=== PATIENT | female | born 1990 | race Caucasian/White ===

== ENCOUNTER → 2018-09-27 | Outpatient (CLI) | payer OTHER ==
--- NOTE | 2018-09-27 14:36 | WOMENS IMAGING REPORT ---
EXAM DESCRIPTION: RETROPERITONEAL U/S COMPLETED DATE/TIME: 09/27/2018 2:25 pm REASON FOR STUDY: N39.0 URINARY TRACT INFECTION,SITE NOT SPECIFIED N39.0 URINARY TRACT INFECTION, S ITE NOT SPECIFIED COMPARISON: None. TECHNIQUE: Dynamic and static grayscale images acquired of the kidneys and bladder and recorded on P ACS. Additional selected color Doppler and spectral images recorded. LIMITATIONS: The examination is somewhat limited by overlying bowel gas. FINDINGS: RIGHT KIDNEY: The right kidney measures 12.0 x 5.1 x 5.8 cm, normal size. Normal echoge nicity. No solid or suspicious masses. No hydronephrosis. No calcifications. LEFT KIDNEY: The left kidney measures 11.6 x 4.6 x 4.9 cm, normal size. Normal echogenicity. No solid or suspicious masses. No hydronephrosis. No calcifications. BLADDER: No masses. Right ureteral jet is visualized. Prevoid volume 455.0 cc. Postvoid volume 12. 0 cc. OTHER FINDINGS: No other significant finding. IMPRESSION: 1. The examination is somewhat limited by overlying bowel gas. 2. No evidence of hydronephrosis. 3. Bladder volumes as above. TECHNICAL DOCUMENTATION: JOB ID: [id number] [employer]- All Rights Reserved Reading location - IP/workstation name: [email or web address]
== END ==
LOC: RAD 10:46
PROVIDERS: ATTEND Family Medicine
DX: N39.0 Urinary tract infection, site not specified (principal)
CPT/HCPCS: 76770

== ENCOUNTER 2019-08-22 17:36 | Inpatient (IN) | payer OTHER ==
[2019-08-22] MEDS ORDERED: RINGERS SOLUTION,LACTATED 1,000 ML IV ONE (17:43)
[2019-08-22] MEDS ORDERED: RINGERS SOLUTION,LACTATED 1,000 ML IV PRN (17:43)
[2019-08-22 18:18] LABS: ABSOLUTE EOSINOPHILS # (AUTO) 0.2 10^3/uL (0.0-0.6); ABSOLUTE LYMPHOCYTES (AUTO) 2.3 10^3/uL (0.5-4.7); ABSOLUTE NEUT (AUTO) 7.8 10^3/uL (1.7-8.2); BASOPHILS % (AUTO) 0.4 % (0-2); EOSINOPHILS % (AUTO) 1.6 % (0-6); HEMATOCRIT 38.5 % (36.0-47.0); HEMOGLOBIN 13.3 g/dL (12.0-15.5); LYMPHOCYTES % (AUTO) 20.2 % (13-45); MEAN CORPUSCULAR HEMOGLOBIN 32.4 pg (27.0-33.4); MEAN CORPUSCULAR HGB CONC 34.5 g/dL (32.0-36.0); MEAN CORPUSCULAR VOLUME 94 fl (80-97); MONOCYTES % (AUTO) 9.2 % (3-13); PLATELET COUNT 303 10^3/uL (150-450); RED CELL DISTRIBUTION WIDTH 14.6 % (11.5-14.0); SEGMENTED NEUTROPHILS % (AUTO) 68.6 % (42-78); TOTAL CELLS COUNTED % (AUTO) 100 %; WHITE BLOOD COUNT 11.4 10^3/uL (4.0-10.5)
[2019-08-22 18:25] LABS: APPEARANCE,URINE SLIGHTLY-CLOUDY; BILIRUBIN,URINE NEGATIVE (NEGATIVE); COLOR,URINE YELLOW; GLUCOSE, URINE NEGATIVE (NEGATIVE); KETONES,URINE NEGATIVE (NEGATIVE); LEUKOCYTE ESTERASE,URINE NEGATIVE (NEGATIVE); NITRITE,URINE NEGATIVE (NEGATIVE); PROTEIN,URINE 100 mg/dL (NEGATIVE); URINE SPECIFIC GRAVITY 1.011; UROBILINOGEN,URINE NEGATIVE mg/dL (<2.0)
[2019-08-22 18:48] LABS: URINE AMPHETAMINES SCREEN NEGATIVE; URINE BARBITURATES SCREEN NEGATIVE; URINE BENZODIAZEPINES SCREEN NEGATIVE; URINE COCAINE SCREEN NEGATIVE; URINE MARIJUANA (THC) SCREEN NEGATIVE; URINE METHADONE SCREEN NEGATIVE; URINE PHENCYCLIDINE SCREEN NEGATIVE
--- NOTE | 2019-08-22 19:24 | Admission Physical ---
Datetime Report Generated by CPN: 08/22/2019 19:24 CURRENT ADMISSION Chief Complaint: Scheduled Induction of Labor Indication for Induction: PreEclampsia Admit Impression : Term, Intrauterine ; No Active Labor; Intact Membranes; Induction of Labor Admit Plan: Admit to Unit; Initiate Labor Induction Protocol ALLERGIES Medication Allergies: No Known Allergies (08/22/2019) OBSTETRICAL HISTORY EDC: 08/21/2019 00:00 : 1 Para: 0 Term: 0 : 0 SAB: 0 IAB: 0 Ectopic: 0 Livin Cesareans: 0 VBACs: 0 Multiple Births: 0 Gestational Diabetes: No Rh Sensitization: No Incompetent Cervix: No NELL: No Infertility: No ART Treatment: No Uterine Anomaly: No IUGR: No Hx Previous C/S: No Macrosomia: No Hx Loss/Stillborn: No PIH: Yes Hx : No Placenta Previa/Abruption: No Depression/PP Depression: No PTL/PROM: No Post Hemorrhage: No Current Procedures: Ultrasound; NST Obstetrical History Comments: G1- current SEE RECORDS Alcohol: No Marijuana : No Cocaine: No Other Illicit Drugs: No Cigarettes: Never Smoker. [id number] MEDICAL HISTORY Diabetes: No Blood Transfusion: No Pulmonary Disease (Asthma, TB): No Breast Disease: No Hypertension: Yes Settlement Clerk Surgery: No Heart Disease: No Hosp/Surgery: Yes Autoimmune Disorder: No Anesthetic Complications: No Kidney Disease: Yes Abnormal Pap Smear: Yes Neuro/Epilepsy: No Psychiatric Disorders: No Other Medical Diseases: No Hepatitis/Liver Disease: No Significant Family History: Yes Varicosities/Phlebitis: No Trauma/Violence : No Thyroid Dysfunction: No Medical History Comments: wisdom teeth INFECTIOUS HISTORY Gonorrhea: No Genital Herpes: No Chlamydia: No Tuberculosis: No Syphilis: No Hepatitis: No HIV/AIDS Exposure: No Rash or Viral Illness: No HPV: No PHYSICAL EXAM General: Normal HEENT: Normal Neurologic: Normal Thyroid: Deferred Heart: Normal Lungs: Normal Breast: Deferred Back: Normal Abdomen: Normal Genitourinary Exam: Normal Extremities: Normal DTRs: Normal Pelvic Type: Adequate Vital Signs: Reviewed VAGINAL EXAM Dilatation: 1 Effacement: 25 Station: -3 Contraction Comments: none MEMBRANES Membranes: Intact FETUS A EGA: 40.1 Monitoring: External US FHR- Baseline: 130 Variability: Moderate 6-25bpm Accelerations: 15X15 Decelerations: None FHR Category: Category I Presentation: Vertex Admit Comment: 29yo at 40+1ega presents for IOL due to elevated BPs with 24hour UTP of 975mg. LGSIL pap - needs colpo/pap pp. GBS positive - will treat in labor. No PCN allergy - plan PCN. Admit to labor and delivery. Cvx 1cm - plan cooks catheter and Pitocin for IOL. PLANS FOR LABOR AND DELIVERY Labor and Delivery: Plan Pain Management: Epidural Feeding Preference: Breast Benefit of Breast Feed Discussed: Yes Circumcision: Yes INFORMED CONSENT Informed Consent Obtained: Vaginal Delivery; Induction of Labor; Risks, Benefits and Alternatives Discussed Signature: with User ID: [email or web address]
[2019-08-22] MEDS ORDERED: OXYTOCIN/NORMAL SALINE 20 UNIT/1,000 ML RTUINJ ONE (20:07)
[2019-08-22] MEDS ORDERED: OXYTOCIN 10 UNIT/ML VIAL ONE ×2 (20:07→20:10)
[2019-08-22] MEDS ORDERED: LIDOCAINE 1% INJ-PF (10 MG/ML) 30 ML SDV ONE (20:07)
[2019-08-22] MEDS ORDERED: MISOPROSTOL 0.2 MG TABLET ONE (20:07)
[2019-08-22] MEDS: OXYTOCIN/NORMAL SALINE 20 UNIT/1,000 ML RTUINJ IV PRN (20:26)
[2019-08-22 20:44] LABS: UR PRO/CREAT RATIO RESULT 1.6 mg/mg (0.0-0.2); URINE CREATININE 73.1 mg/dL (16-327)
[2019-08-22 23:09] LABS: ABSOLUTE BASOPHILS # (AUTO) 0.1 10^3/uL (0.0-0.2); ABSOLUTE EOSINOPHILS # (AUTO) 0.3 10^3/uL (0.0-0.6); ABSOLUTE LYMPHOCYTES (AUTO) 2.4 10^3/uL (0.5-4.7); ABSOLUTE MONOCYTES (AUTO) 1.2 10^3/uL (0.1-1.4); ABSOLUTE NEUT (AUTO) 7.9 10^3/uL (1.7-8.2); BASOPHILS % (AUTO) 0.5 % (0-2); EOSINOPHILS % (AUTO) 2.2 % (0-6); HEMATOCRIT 36.5 % (36.0-47.0); HEMOGLOBIN 12.4 g/dL (12.0-15.5); MEAN CORPUSCULAR HEMOGLOBIN 32.3 pg (27.0-33.4); MEAN CORPUSCULAR HGB CONC 34.1 g/dL (32.0-36.0); MEAN CORPUSCULAR VOLUME 95 fl (80-97); PLATELET COUNT 238 10^3/uL (150-450); RED BLOOD COUNT 3.85 10^6/uL (3.72-5.28); RED CELL DISTRIBUTION WIDTH 14.5 % (11.5-14.0); SEGMENTED NEUTROPHILS % (AUTO) 67.3 % (42-78); TOTAL CELLS COUNTED % (AUTO) 100 %; WHITE BLOOD COUNT 11.8 10^3/uL (4.0-10.5)
[2019-08-22 23:27] LABS: ALBUMIN 3.2 g/dL (3.5-5.0); ALKALINE PHOSPHATASE 178 U/L (38-126); ANION GAP 8 (5-19); ASPARTATE AMINO TRANSFERASE 25 U/L (14-36); BILIRUBIN,DIRECT 0.2 mg/dL (0.0-0.4); BILIRUBIN,TOTAL 0.2 mg/dL (0.2-1.3); BLOOD UREA NITROGEN 9 mg/dL (7-20); CALCIUM 9.1 mg/dL (8.4-10.2); CARBON DIOXIDE 24 mmol/L (22-30); CHLORIDE 104 mmol/L (98-107); GLUCOSE 108 mg/dL (75-110); POTASSIUM 4.2 mmol/L (3.6-5.0); URIC ACID 4.8 mg/dL (2.5-6.2)
[2019-08-22] MEDS ORDERED: PENICILLIN G-K 5 MILLION UNIT VIAL ONE (23:30)
[2019-08-23] MEDS ORDERED: PENICILLIN G POTASSIUM 5,000,000 UNIT in DEXTROSE 5%-WATER 100 ML IV ONE ×2
[2019-08-23] MEDS ORDERED: FENTANYL CITRATE INJ/PF 100 MCG/2 ML AMPUL ONE ×2 (03:12→22:36)
[2019-08-23] MEDS ORDERED: BUPIVACAINE HCL 0.25 % INJ/PF (2.5 MG/1 ML) 30 ML VIAL ONE (03:12)
[2019-08-23] MEDS ORDERED: PHENYLEPHRINE HCL INJ/PF 10 MG/1 ML SDV ONE (03:12)
[2019-08-23] MEDS ORDERED: EPHEDRINE SULFATE INJ 50 MG/1 ML AMPULE ONE (03:12)
[2019-08-23] MEDS ORDERED: FENTANYL/BUPIVACAINE/NS/PF 300 MCG/150 ML RTUINJ EPI ONE ×2 (03:12→16:45)
[2019-08-23] MEDS ORDERED: LIDOCAINE 2%/EPINEPHRINE INJ 20 ML VIAL ONE (04:02)
[2019-08-23] MEDS: PENICILLIN G POTASSIUM 2,500,000 UNIT in DEXTROSE 5%-WATER 50 ML IV SCH ×5 (04:31→21:03)
[2019-08-23] MEDS ORDERED: LIDOCAINE 1% INJ-PF (10 MG/ML) 30 ML SDV ONE (05:44)
[2019-08-23] MEDS ORDERED: SUCCINYLCHOLINE CHLORIDE INJ 200 MG/10 ML VIAL ONE (09:31)
[2019-08-23] MEDS ORDERED: KETOROLAC TROMETHAMINE 60 MG/2 ML SDV ONE (09:31)
[2019-08-23] MEDS ORDERED: LIDOCAINE 2% INJ-PF (20 MG/ML) 10 ML AMPUL ONE ×2 (12:18→22:32)
[2019-08-23] MEDS ORDERED: OXYTOCIN/NORMAL SALINE 20 UNIT/1,000 ML RTUINJ ONE ×2 (18:36→19:48)
[2019-08-23] MEDS: OXYTOCIN/NORMAL SALINE 20 UNIT/1,000 ML RTUINJ IV PRN (19:26)
[2019-08-23] MEDS ORDERED: DIPHENHYDRAMINE HCL 50 MG/ML VIAL IV ONE (21:35)
[2019-08-23] MEDS ORDERED: DIPHENHYDRAMINE HCL 50 MG/ML VIAL ONE (21:36)
[2019-08-23] MEDS ORDERED: CEFAZOLIN INJ 1 GM VIAL ONE ×2 (22:20→22:21)
[2019-08-23] MEDS ORDERED: AZITHROMYCIN INJ 500 MG VIAL IV ONE (22:20)
--- NOTE | 2019-08-23 22:31 | PDOC PROGRESS REPORT ---
Subjective Progress Note for:: 08/23/19 Subjective:: Patient called out stating she "cannot do this any more" . She reports she is exhausted and in pain. On cervical exam she is the same as she was 5 hours ago. No change. There is caput noted of 1-2 cm. Discussed with her that she is not making cervical change and we are picking up Ctx Q 2 min regularly with MVU >200. Pitocin at 2> mu and still no exchange underwriting consultant past 5 hours DIscussed failure to progress in labor. Discussed risks , benefits and alternatives of PCS. She and her are in favor of Primary section. Consents signed. Nursing epoxy fabrication supervisor, anesthesia and OR notified. WIll proceed with non-emergent CS for failure to progress. Reason For Visit: /IOL Physical Exam - Physical Exam Vital Signs: Intake & Output 08/22/19 08/23/19 08/24/19 06:59 06:59 06:59 Intake Total 138 Balance 138 Weight 111.9 kg General appearance: PRESENT: no acute distress Respiratory exam: PRESENT: clear to auscultation ann marie GI/Abdominal exam: PRESENT: soft, other - gravid Neurological exam: PRESENT: alert, oriented to person, oriented to place, oriented to time Skin exam: PRESENT: dry, warm - Obstetrical Exam Dilation (cm): 7 Effacement (%): 90 Station: 0 Tender: No Result Laboratory Results: 08/22/19 23:01 08/22/19 23:01 08/22/19 08/22/19 23:01 23:01 WBC 11.8 H RBC 3.85 Hgb 12.4 Hct 36.5 MCV 95 MCH 32.3 MCHC 34.1 RDW 14.5 H Plt Count 238 Seg Neutrophils % 67.3 Sodium 135.6 L Potassium 4.2 Chloride 104 Carbon Dioxide 24 Anion Gap 8 BUN 9 Creatinine 0.53 Est GFR ( Amer) > 60 Glucose 108 Uric Acid 4.8 Calcium 9.1 Total Bilirubin 0.2 AST 25 Alkaline Phosphatase 178 H Total Protein 6.0 L Albumin 3.2 L Assessment & Plan - Diagnosis (1) Failure to progress in labor Is this a current diagnosis for this admission?: Yes (2) Failure to progress in labor Is this a current diagnosis for this admission?: Yes - Time Time Spent with patient: 15-24 minutes - Plan Summary Plan Summary: Patient called out stating she "cannot do this any more" . She reports she is exhausted and in pain. On cervical exam she is the same as she was 5 hours ago. No change. There is caput noted of 1-2 cm. Discussed with her that she is not making cervical change and we are picking up Ctx Q 2 min regularly with MVU >200. Pitocin at 2> mu and still no exchange underwriting consultant past 5 hours DIscussed failure to progress in labor. Discussed risks , benefits and alternatives of PCS. She and her are in favor of Primary section. Consents signed. Nursing epoxy fabrication supervisor, anesthesia and OR notified. WIll proceed with non-emergent CS for failure to progress.
[2019-08-23] MEDS ORDERED: CITRIC ACID/SODIUM CITRATE ORAL SOLN 15 ML UDCUP ONE (22:33)
[2019-08-23] MEDS ORDERED: ONDANSETRON HCL INJ/PF 4 MG/2 ML SDV ONE (22:37)
[2019-08-23] MEDS ORDERED: OXYTOCIN 10 UNIT/ML VIAL ONE ×2 (22:37→23:42)
[2019-08-23] MEDS ORDERED: MORPHINE SULFATE INJ PF 10 MG/10 ML SDV ONE (22:37)
[2019-08-24] MEDS ORDERED: ACETAMINOPHEN 325 MG TABLET PO PRN (00:06)
[2019-08-24] MEDS ORDERED: ACETAMINOPHEN 1,000 MG/100 ML RTUPB IV PRN (00:06)
[2019-08-24] MEDS ORDERED: HYDROMORPHONE HCL INJ/PF 2 MG/ML AMPULE IV PRN (00:06)
[2019-08-24] MEDS ORDERED: PROMETHAZINE HCL INJ 25 MG/1 ML VIAL IV PRN (00:06)
[2019-08-24] MEDS ORDERED: DIPH/PERTUSS(ACELL)/TETANUS VAC/PF 0.5 ML SYR (>=10YO) IM PRN (00:06)
[2019-08-24] MEDS ORDERED: MEASLES,MUMPS&RUBELLA VACC/PF 0.5 ML VIAL SUBCUT PRN (00:06)
[2019-08-24] MEDS ORDERED: OXYTOCIN/NORMAL SALINE 20 UNIT/1,000 ML RTUINJ IV PRN (00:06)
--- NOTE | 2019-08-24 00:13 | PDOC DELIVERY SUMMARY ---
Delivery Summary - Maternal Hx : I Hx Para: 0 Gestational Age: 40.2 Intrapartum: Pre-Eclampsia Fluids: Clear - Delivery Presentation: Vertex - OP presentation Heart Rate Monitoring: Done Pre-Operatively Uterine Contraction Monitoring: Internal Support Person Present: Yes Location: OR : Primary Placenta: Within Normal Limits Placenta Description: Anterior Number of Vessels (Cord): 3 Nuchal Cord: No Delivery of Placenta Date: 08/24/19 Estimated Blood Loss: 700 - Medications Type of Anesthesia:: GA - Delivery Personnel COUNT TEAM MEMBER: SU EVANS RN: JOHN CALDWELL MD: GRADY JJ
--- NOTE | 2019-08-24 00:23 | Operative Report ---
Operative Report DATE OF SURGERY: 08/24/19 PREOPERATIVE DIAGNOSIS: Arrest of descent in labor. Failure to progress in la bor. Mild preeclampsia. Intrauterine pregnacny at 40.2 wks POSTOPERATIVE DIAGNOSIS: Arrest of descent in labor. Failure to progress in labor. Mild preeclampsia. Intrauterine pregnacny at 40.2 wks. Occiput posterior presentation OPERATION: Primary section SURGEON: GRADY JJ ANESTHESIA: GA TISSUE REMOVED OR ALTERED: Placenta COMPLICATIONS: None ESTIMATED BLOOD LOSS: 700 INTRAOPERATIVE FINDINGS: Normal appearing uterus, bilateral fallopian tubes and ovaries. Viable male infant with Apgars of 7 and 9 at 1 and 5 minutes respectfully. Weight 9 lb 4 oz. PROCEDURE: IV fluids: per anesthesia record Urinary output: 250 cc Findings: Normal-appearing uterus bilateral fallopian tubes and ovaries. Viable male infant with Apgars of 7 and 9, at 1 and 5 minutes respectively. Position: To recovery room in stable condition Description of procedure: The patient was taken to the operating room and general anesthesia was administered and found to be adequate. She was then placed on the OR table in the supine position with a slight leftward tilt. Patient was prepped and draped in usual sterile fashion. Ancef 2 gms was given IV prior to the procedure for infection prophylaxis along with Azithromycin 500mg IV x1. Timeout was taken. A Pfannenstiel skin incision was then made approximately 3 cm above the pubic symphysis and carried down to level the rectus fascia. The rectus fascia was then nicked in the midline with a scalpel and the fascial incision was extended laterally with use of curved Zambrano scissors. The rectus fascia was then grasped with 2 Kocker clamps elevated and the underlying rectus muscle was dissected off both bluntly and sharply. Any bleeding controlled with cautery. The rectus muscles were then split in the midline and the peritoneum was entered. The peritoneal incision was then extended by manually stretching the peritoneum. The bladder blade was positioned. A bladder flap was created using metzenbaum scissors and pick ups. The bladder was noted to be out of harm's way. A scalpel was then used in the lower uterine for the hysterotomy, slowly until amniotomy was obtained a large amount of fluid was noted. The uterine incision was then manually stretched. The infant was noted to be in vertex postion (OP) -deep in the pelvis. Using a hand deep in pelvis and ultimately an psychological assistant hand from below , the head was elevated and brought to the hysterotomy incision. A Kiwi was used to help guide the head and popped off once. The head then delivered with difficulty. The shoulders and the rest of the body followed and the anterior left shoulder was difficult to deliver requiring flexion of arm. The cord was cut clamped and the infant was handed off to the nurse awaiting. Infant was crying during hand off. The placenta was manually delivered. Using a lap gauze the uterus was cleared of all clots and debris. The uterus was then exteriorized and a bladder blade was repositioned. The uterine incision was then closed with 0 Chromic suture in a running locked fashion. A second layer of the same suture was used in a running locked imbricated fashion. The uterine incision was inspected and noted to be hemostatic. Small hematoma on left angle not expanding (<2-3 cm). The posterior aspect of the uterus was then inspected and anatomy was seen as above. No hematoma on posterior aspect. The uterus was returned to its normal anatomic position within the abdominal cavity. Warm saline irrigation was used to clear all clots and debris from the abdomen. The uterine incision was inspected once more and noted to remain hemostatic. The bladder blade was removed and the peritoneum was closed with 2-0 chromic in a running fashion. The rectus muscles were then reapproximated and the rectus fascia was closed with a #1 PDS in a running fashion. The subcutaneous tissue was then inspected and any bleeding was controlled with Bovie electrocautery. The subcutaneous tissue was then closed with 2-0 Plain Gut suture in a running fashion. The skin was then closed with 3-0 Monocryl in a running subcuticular fashion. The skin incision was then clean dried and Dermabond was applied over the skin incision. All instrument sponge and needle counts were correct x3 for the procedure the patient tolerated the procedure well. She will proceed to recovery room in stable condition
[2019-08-24] MEDS ORDERED: HYDROMORPHONE HCL INJ/PF 2 MG/ML AMPULE ONE (01:57)
--- NOTE | 2019-08-24 03:00 | Delivery Summary ---
Del Sum A-C Datetime Report Generated by CPN: 08/24/2019 02:59 DELIVERY PERSONNEL DELIVERY PERSONNEL: [id number] Delivery Doctor:: Lola Villeda MD Anesthesiologist:: Evan Tyson MD COMMISSIONER PUBLIC WORKS:: Crystal Garcia COMMISSIONER PUBLIC WORKS Labor and Delivery Nurse:: Denilson Kenny RN Priest:: Denilson Kenny RN Neonatal Nurse Practitioner:: MADHU Michelle Nursery Nurse:: Lillian Silverman RN Pharmacy Salesperson/ONLINE MARKETING ANALYST: [facility] Salesperson/ONLINE MARKETING ANALYST: Bridgette Saleh ST MATERNAL INFORMATION Delivery Anesthesia: General Medications After Delivery: Pitocin Bolus-Please Comment; Pitocin Drip 20 Units/1000ml NSS Meds After Delivery Comment: 2 bags of Pitocin 20 units given IV after delivery Estimated Blood Loss (ml): 700 Delivery QBL: 500 Maternal Complications: None LABOR SUMMARY EDC: 08/21/2019 00:00 No. Babies in Womb: 1 Attempted: No Labor Anesthesia: Epidural LABOR INFORMATION Reason for Induction: Pre-Eclampsia Oxytocin: Induction Group B Beta Strep: positive Antibiotics # of Doses: 6 Antibiotics Time of Last Dose: 2102 Name of Antibiotic Given: Pencillin Steroids Given: None Reason Steroids Not Administered: Not Applicable MEMBRANES Membranes Rupture Method: Artificial Rupture of Membranes: 08/23/2019 05:30 Length of Rupture (hr): 18.03 Amniotic Fluid Color: Clear Amniotic Fluid Amount: Small Amniotic Fluid Odor: Normal STAGES OF LABOR Stage 3 hr: 0 Stage 3 min: 0 VAGINAL DELIVERY Episiotomy: None Laceration Repair: Not Applicable Sponge Count Correct: Yes Sharps Count Correct: Yes CSECTION DELIVERY Primary Indication: Failure of Descent Secondary Indication: Arrest of Descent CSection Incidence: Primary Labor: Labor Elective: Nonelective CSection Incision: Lower Uterine Transverse BABY A INFORMATION Delivery Date/Time: 08/23/2019 23:32 Method of Delivery: Nurse Controlled Delivery: No Born in Route : No : N/A Forceps: N/A Vacuum Extraction: Successful Shoulder Dystocia : No PRESENTATION/POSITION BABY A Presentation: Cephalic Cephalic Presentation: Vertex Vertex Position: Left Occipital Posterior Breech Presentation: N/A PLACENTA INFORMATION BABY A Placenta Delivery Time : 08/23/2019 23:32 Placenta Method of Delivery: Manual Removal Placenta Status: Delivered SCORES BABY A Heart Rate 1 min: >100 bpm Resp Effort 1 min: Good Cry Reflex Irritability 1 min: Cough or Sneeze or Pulls Away Muscle Tone 1 min: Some Flexion of Extremities Color 1 min: Blue/Pale Resuscitation Effort 1 min: Tactile Stimulation SCORE 1 MIN: 7 Heart Rate 5 min: >100 bpm Resp Effort 5 min: Good Cry Reflex Irritability 5 min: Cough or Sneeze or Pulls Away Muscle Tone 5 min: Active Motion Color 5 min: Body [place], Extremities Blue SCORE 5 MIN: 9 INFANT INFORMATION BABY A Gestational Age at Delivery: 40.2 Gestational Status: Full Term- 39- 40.6 Weeks Infant Outcome : Liveborn Condition : Stable Infant Sex: Male IDENTIFICATION BABY A Verification Date/Time: 08/24/2019 00:09 ID Band Number: [id number] Mother's Name Verified: Yes Infant RN Verifying : D Filiberto RN/C Gray RN WEIGHT/LENGTH BABY A Birthweight (gm): 4195 Weight (lb): 9 Weight (oz): 4 Length (in): 22.25 Infant Length (cm): 56.52 CORD INFORMATION BABY A No. Cord Vessels: 3 Nuchal Cord : N/A Cord Blood Taken: Yes-For Eval (Mom's Blood Type - or O+) Infant Suction: Mouth; Nose ASSESSMENT BABY A Skin to Skin: Yes Skin to Skin Time (min): 30 BABY B INFORMATION : N/A
--- NOTE | 2019-08-24 03:01 | Delivery Summary ---
Del Sum A-C Datetime Report Generated by CPN: 08/24/2019 03:01 DELIVERY PERSONNEL DELIVERY PERSONNEL: [id number] Delivery Doctor:: Lola Villeda MD Anesthesiologist:: Evan Tyson MD MANAGER FINANCIAL:: Crystal Garcia MANAGER FINANCIAL Labor and Delivery Nurse:: Denilson Kenny RN Nutritionalist:: Denilson Kenny RN Neonatal Nurse Practitioner:: MADHU Michelle Nursery Nurse:: Lillian Silverman RN Post Tensioning Ironworker/PATTERN PUNCHER: [facility] Post Tensioning Ironworker/PATTERN PUNCHER: Bridgette Saleh ST MATERNAL INFORMATION Delivery Anesthesia: General Medications After Delivery: Pitocin Bolus-Please Comment; Pitocin Drip 20 Units/1000ml NSS Meds After Delivery Comment: 2 bags of Pitocin 20 units given IV after delivery Estimated Blood Loss (ml): 700 Delivery QBL: 500 Maternal Complications: None LABOR SUMMARY EDC: 08/21/2019 00:00 No. Babies in Womb: 1 Attempted: No Labor Anesthesia: Epidural LABOR INFORMATION Reason for Induction: Pre-Eclampsia Oxytocin: Induction Group B Beta Strep: positive Antibiotics # of Doses: 6 Antibiotics Time of Last Dose: 2102 Name of Antibiotic Given: Pencillin Steroids Given: None Reason Steroids Not Administered: Not Applicable MEMBRANES Membranes Rupture Method: Artificial Rupture of Membranes: 08/23/2019 05:30 Length of Rupture (hr): 18.03 Amniotic Fluid Color: Clear Amniotic Fluid Amount: Small Amniotic Fluid Odor: Normal STAGES OF LABOR Stage 3 hr: 0 Stage 3 min: 0 VAGINAL DELIVERY Episiotomy: None Laceration #1: None Laceration Extension #1: N/A Laceration Repair: Not Applicable Sponge Count Correct: Yes Sharps Count Correct: Yes CSECTION DELIVERY Primary Indication: Failure of Descent Secondary Indication: Arrest of Descent CSection Incidence: Primary Labor: Labor Elective: Nonelective CSection Incision: Lower Uterine Transverse BABY A INFORMATION Delivery Date/Time: 08/23/2019 23:32 Method of Delivery: Nurse Controlled Delivery: No Born in Route : No : N/A Forceps: N/A Vacuum Extraction: Successful Shoulder Dystocia : No PRESENTATION/POSITION BABY A Presentation: Cephalic Cephalic Presentation: Vertex Vertex Position: Left Occipital Posterior Breech Presentation: N/A PLACENTA INFORMATION BABY A Placenta Delivery Time : 08/23/2019 23:32 Placenta Method of Delivery: Manual Removal Placenta Status: Delivered SCORES BABY A Heart Rate 1 min: >100 bpm Resp Effort 1 min: Good Cry Reflex Irritability 1 min: Cough or Sneeze or Pulls Away Muscle Tone 1 min: Some Flexion of Extremities Color 1 min: Blue/Pale Resuscitation Effort 1 min: Tactile Stimulation SCORE 1 MIN: 7 Heart Rate 5 min: >100 bpm Resp Effort 5 min: Good Cry Reflex Irritability 5 min: Cough or Sneeze or Pulls Away Muscle Tone 5 min: Active Motion Color 5 min: Body [place], Extremities Blue SCORE 5 MIN: 9 INFORMATION BABY A Gestational Age at Delivery: 40.2 Gestational Status: Full Term- 39- 40.6 Weeks Infant Outcome : Liveborn Infant Condition : Stable Sex: Male IDENTIFICATION BABY A Infant Verification Date/Time: 08/24/2019 00:09 ID Band Number: [id number] Mother's Name Verified: Yes Infant RN Verifying : D Lonnience RN/C Gray RN WEIGHT/LENGTH BABY A Infant Birthweight (gm): 4195 Weight (lb): 9 Weight (oz): 4 Length (in): 22.25 Infant Length (cm): 56.52 CORD INFORMATION BABY A No. Cord Vessels: 3 Nuchal Cord : N/A Cord Blood Taken: Yes-For Eval (Mom's Blood Type - or O+) Suction: Mouth; Nose ASSESSMENT BABY A Skin to Skin: Yes Skin to Skin Time (min): 30 BABY B INFORMATION : N/A
[2019-08-24] MEDS: OXYCODONE-ACETAMINOPHEN 5-325 MG TABLET PO PRN ×3 (03:56→15:19)
[2019-08-24] MEDS: KETOROLAC TROMETHAMINE INJ/PF 30 MG/1 ML SDV IV SCH ×2 (06:41→13:50)
[2019-08-24] MEDS: PRENATAL VITAMIN W DHA CAPSULE PO SCH (10:34)
[2019-08-24] MEDS: DOCUSATE SODIUM 100 MG CAPSULE PO SCH ×2 (10:34→17:01)
--- NOTE | 2019-08-24 11:17 | PDOC PROGRESS REPORT ---
Subjective-OB Progress Note for:: 08/24/19 Physical Exam (OB) Vital Signs: Temp Pulse Resp BP Pulse Ox 98.1 F 98 17 136/80 H 98 08/24/19 08:06 08/24/19 08:06 08/24/19 08:06 08/24/19 08:06 08/24/19 08:06 Intake & Output 08/23/19 08/24/19 08/25/19 06:59 06:59 06:59 Intake Total 138 500 Output Total 643 Balance -505 500 Weight 111.9 kg - PIH/Pre-Eclampsia DTR's: 1 + Clonus: Negative Headache: Absent Epigastric Pain: No Visual Changes: No - Dressing Removed: No Incision: Open Closure Type: Surgical Glue - Lochia Lochia Amount: Small 10-25 ml Lochia Color: Rubra/Red - Abdomen Description: Soft Hernia Present: No Bowel Sounds: Normoactive Flatus Presence: Absent Stool: No Fundal Description: Firm, Midline Fundal Height: u/u - u/2 Objective-Diagnostic Laboratory: 08/22/19 23:01 08/22/19 23:01
[2019-08-24] MEDS: IBUPROFEN 800 MG TABLET PO SCH (22:27)
[2019-08-24] MEDS: SIMETHICONE 80 MG TAB.CHEW PO PRN (22:27)
[2019-08-25] MEDS: IBUPROFEN 800 MG TABLET PO SCH ×4 (00:02→17:41)
[2019-08-25 06:35] LABS: HEMATOCRIT 34.1 % (36.0-47.0); HEMOGLOBIN 11.7 g/dL (12.0-15.5); MEAN CORPUSCULAR HEMOGLOBIN 32.7 pg (27.0-33.4); MEAN CORPUSCULAR HGB CONC 34.2 g/dL (32.0-36.0); MEAN CORPUSCULAR VOLUME 96 fl (80-97); PLATELET COUNT 252 10^3/uL (150-450); RED BLOOD COUNT 3.57 10^6/uL (3.72-5.28); RED CELL DISTRIBUTION WIDTH 14.7 % (11.5-14.0); WHITE BLOOD COUNT 15.6 10^3/uL (4.0-10.5)
[2019-08-25] MEDS: SIMETHICONE 80 MG TAB.CHEW PO PRN (09:52)
[2019-08-25] MEDS: PRENATAL VITAMIN W DHA CAPSULE PO SCH (09:52)
[2019-08-25] MEDS: DOCUSATE SODIUM 100 MG CAPSULE PO SCH ×2 (09:52→17:41)
[2019-08-25] MEDS: OXYCODONE-ACETAMINOPHEN 5-325 MG TABLET PO PRN ×2 (09:52→17:41)
--- NOTE | 2019-08-25 11:23 | PDOC DISCHARGE SUMMARY ---
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 B Streptococcus Is this a current diagnosis for this admission?: Yes (2) Delivery by elective caesarean section Is this a current diagnosis for this admission?: Yes (3) Failure to progress in labor Is this a current diagnosis for this admission?: Yes (4) Pre-eclampsia Is this a current diagnosis for this admission?: Yes - Additional Information Resuscitation Status: Full Code Discharge Diet: Regular Discharge Activity: Activity As Tolerated, No Lifting Over 10 Pounds, No Lifting/Push/Pulling, Pelvic Rest, No tub bath Referrals: TOMER ARIAS MD [Primary Care Provider] - Prescriptions: Oxycodone HCl/Acetaminophen [Percocet 5-325 mg Tablet] 1 tab PO Q4HP PRN #30 tablet PRN Reason: pain scale 3-5 Ibuprofen [Motrin 800 mg Tablet] 800 mg PO Q8HP PRN #60 tablet PRN Reason: Home Medications: 95/Iron Fum/Folic/Dha [ + Dha Combo Pack] 1 tab PO DAILY 08/22/19 Ibuprofen [Motrin 800 mg Tablet] 800 mg PO Q8HP PRN #60 tablet 08/25/19 Oxycodone HCl/Acetaminophen [Percocet 5-325 mg Tablet] 1 tab PO Q4HP PRN #30 tablet 08/25/19 HPI Reason(s) for Admission: Induction of Labor, Obstetric Complications, PIH, Group B Strep Positive Procedures: NST Intrapartum Procedure(s): : Low Cervical, Transverse Results Laboratory Results: WBC 15.6 10^3/uL (4.0-10.5) H 08/25/19 06:04 RBC 3.57 10^6/uL (3.72-5.28) L 08/25/19 06:04 Hgb 11.7 g/dL (12.0-15.5) L 08/25/19 06:04 Hct 34.1 % (36.0-47.0) L 08/25/19 06:04 MCV 96 fl (80-97) 08/25/19 06:04 MCH 32.7 pg (27.0-33.4) 08/25/19 06:04 MCHC 34.2 g/dL (32.0-36.0) 08/25/19 06:04 RDW 14.7 % (11.5-14.0) H 08/25/19 06:04 Plt Count 252 10^3/uL (150-450) 08/25/19 06:04 Lymph % (Auto) 20.0 % (13-45) 08/22/19 23:01 [place] % (Auto) 10.0 % (3-13) 08/22/19 23:01 Eos % (Auto) 2.2 % (0-6) 08/22/19 23:01 Baso % (Auto) 0.5 % (0-2) 08/22/19 23:01 Absolute Neuts (auto) 7.9 10^3/uL (1.7-8.2) 08/22/19 23:01 Absolute Lymphs (auto) 2.4 10^3/uL (0.5-4.7) 08/22/19 23:01 Absolute Monos (auto) 1.2 10^3/uL (0.1-1.4) 08/22/19 23:01 Absolute Eos (auto) 0.3 10^3/uL (0.0-0.6) 08/22/19 23:01 Absolute Basos (auto) 0.1 10^3/uL (0.0-0.2) 08/22/19 23:01 Seg Neutrophils % 67.3 % (42-78) 08/22/19 23:01 Sodium 135.6 mmol/L (137-145) L 08/22/19 23:01 Potassium 4.2 mmol/L (3.6-5.0) 08/22/19 23:01 Chloride 104 mmol/L (98-107) 08/22/19 23:01 Carbon Dioxide 24 mmol/L (22-30) 08/22/19 23:01 Anion Gap 8 (5-19) 08/22/19 23:01 BUN 9 mg/dL (7-20) 08/22/19 23:01 Creatinine 0.53 mg/dL (0.52-1.25) 08/22/19 23:01 Est GFR ( Amer) > 60 (>60) 08/22/19 23:01 Est GFR (MDRD) Non-Af > 60 (>60) 08/22/19 23:01 Glucose 108 mg/dL (75-110) 08/22/19 23:01 Uric Acid 4.8 mg/dL (2.5-6.2) 08/22/19 23:01 Calcium 9.1 mg/dL (8.4-10.2) 08/22/19 23:01 Total Bilirubin 0.2 mg/dL (0.2-1.3) 08/22/19 23:01 Direct Bilirubin 0.2 mg/dL (0.0-0.4) 08/22/19 23:01 Neonat Total Bilirubin Not Reportable 08/22/19 23:01 Neonat Direct Bilirubin Not Reportable 08/22/19 23:01 Neonat Indirect Bili Not Reportable 08/22/19 23:01 AST 25 U/L (14-36) 08/22/19 23:01 ALT 15 U/L (<35) 08/22/19 23:01 Alkaline Phosphatase 178 U/L (38-126) H 08/22/19 23:01 Lactate Dehydrogenase 181 U/L (120-246) 08/22/19 23:01 Total Protein 6.0 g/dL (6.3-8.2) L 08/22/19 23:01 Albumin 3.2 g/dL (3.5-5.0) L 08/22/19 23:01 Urine Color YELLOW 08/22/19 17:45 Urine Appearance SLIGHTLY-CLOUDY 08/22/19 17:45 Urine pH 6.0 (5.0-9.0) 08/22/19 17:45 Ur Specific [place] 1.011 08/22/19 17:45 Urine Protein 100 mg/dL (NEGATIVE) H 08/22/19 17:45 Urine Glucose (UA) NEGATIVE mg/dL (NEGATIVE) 08/22/19 17:45 Urine Ketones NEGATIVE mg/dL (NEGATIVE) 08/22/19 17:45 Urine Blood SMALL (NEGATIVE) H 08/22/19 17:45 Urine Nitrite NEGATIVE (NEGATIVE) 08/22/19 17:45 Urine Bilirubin NEGATIVE (NEGATIVE) 08/22/19 17:45 Urine Urobilinogen NEGATIVE mg/dL (<2.0) 08/22/19 17:45 Ur Leukocyte Esterase NEGATIVE (NEGATIVE) 08/22/19 17:45 Urine WBC (Auto) 3 /HPF 08/22/19 17:45 Urine RBC (Auto) 1 /HPF 08/22/19 17:45 Urine Bacteria (Auto) TRACE /HPF 08/22/19 17:45 Squamous Epi Cells Auto 14 /HPF 08/22/19 17:45 Urine Mucus (Auto) RARE /LPF 08/22/19 17:45 Urine Creatinine 73.1 mg/dL (16-327) 08/22/19 18:06 Protein/Creatinin Ratio 1.6 mg/mg (0.0-0.2) H 08/22/19 18:06 Urine Total Protein 119.0 mg/dL (<12) H 08/22/19 18:06 Urine Ascorbic Acid NEGATIVE (NEGATIVE) 08/22/19 17:45 Urine Opiates Screen NEGATIVE 08/22/19 17:45 Urine Methadone Screen NEGATIVE 08/22/19 17:45 Ur Barbiturates Screen NEGATIVE 08/22/19 17:45 Ur Phencyclidine Scrn NEGATIVE 08/22/19 17:45 Ur Amphetamines Screen NEGATIVE 08/22/19 17:45 U Benzodiazepines Scrn NEGATIVE 08/22/19 17:45 Urine Cocaine Screen NEGATIVE 08/22/19 17:45 U Marijuana (THC) Screen NEGATIVE 08/22/19 17:45 RPR NONREACTIVE (NONREACTIVE) 08/22/19 17:57 Blood Type O POSITIVE 08/22/19 17:57 Antibody Screen NEGATIVE 08/22/19 17:57 Plan Plan of Treatment: f/u 1 wk at [facility] for incision and BP check Time Spent: Less than 30 Minutes
[2019-08-26] MEDS: IBUPROFEN 800 MG TABLET PO SCH ×3 (00:01→11:24)
[2019-08-26] MEDS: SIMETHICONE 80 MG TAB.CHEW PO PRN (00:07)
[2019-08-26] MEDS: OXYCODONE-ACETAMINOPHEN 5-325 MG TABLET PO PRN ×2 (00:07→09:12)
[2019-08-26] MEDS: PENICILLIN G POTASSIUM 2,500,000 UNIT in DEXTROSE 5%-WATER 50 ML IV SCH (03:20)
[2019-08-26] MEDS: DOCUSATE SODIUM 100 MG CAPSULE PO SCH (09:11)
[2019-08-26] MEDS: PRENATAL VITAMIN W DHA CAPSULE PO SCH (09:11)
[2019-08-26] MEDS ORDERED: FUROSEMIDE 40 MG TABLET PO ONE (13:00)
[2019-08-26 14:04] VITALS: BP 124/84
== END 2019-08-26 15:00 | disposition home or self-care (01) | DRG 788 ==
LOC: LR 17:36 → 2S 08-24 02:11
PROVIDERS: ADMIT Obstetrics & Gynecology; ATTEND Obstetrics & Gynecology
PROC: 10D00Z1 Extraction of Products of Conception, Low, Open Approach (ICD-10-PCS; principal; 2019-08-24)
DX: O14.94 Unspecified pre-eclampsia, complicating childbirth (principal); O99.824 Streptococcus B carrier state complicating childbirth; O75.81 Maternal exhaustion complicating labor and delivery; O64.0XX0 Obstructed labor due to incomplete rotation of fetal head, not applicable or unspecified; O62.1 Secondary uterine inertia; Z3A.40 40 weeks gestation of pregnancy; Z37.0 Single live birth
CPT/HCPCS: 1961; 36415; 80053; 80307; 81001; 82570; 83615; 84156; 84550; 85025; 85027; 86592; 86850; 86900; 86901; 88307; 94760; C1758; J0330; J0456; J0690; J1170; J1200; J1885; J2274; J2370; J2405; J2540; J2590; J3010; J3490; J7060

== ENCOUNTER → 2020-01-02 | Outpatient (CLI) | payer OTHER ==
--- NOTE | 2020-01-02 11:04 | RADIOLOGY REPORT (SQ) ---
EXAM DESCRIPTION: LUMBAR SPINE 2 VIEWS IMAGES COMPLETED DATE/TIME: 01/02/2020 8:53 am REASON FOR STUDY: LUMBAGO WITH SCIATICA, LEFT SIDE M54.42 LUMBAGO WITH SCIATICA, LEFT SIDE COMPARISON: None. NUMBER OF VIEWS: Two views. TECHNIQUE: AP and lateral radiographic images acquired of the lumbar spine. LIMITATIONS: None. FINDINGS: MINERALIZATION: Normal. SEGMENTATION: Normal. No transitional anatomy. ALIGNMENT: Normal. VERTEBRAE: Maintained height. No fracture or worrisome bone lesion. DISCS: Preserved height. No significant osteophytes or end plate irregularity. POSTERIOR ELEMENTS: Pedicles and facets are intact. No pars defect or posterior arch defects. HARDWARE: None in the spine. PARASPINAL SOFT TISSUES: Normal. PELVIS: Intact as visualized. No fractures or worrisome bone lesions. SI joints intact. OTHER: No other significant finding. IMPRESSION: NORMAL 2 VIEW LUMBAR SPINE. TECHNICAL DOCUMENTATION: JOB ID: [id number] 2010 [employer]- All Rights Reserved Reading location - IP/workstation name: [email or web address]
== END ==
LOC: OD 08:41
PROVIDERS: ATTEND Family Medicine
DX: M54.42 Lumbago with sciatica, left side (principal)
CPT/HCPCS: 72100